=== PATIENT | male | born 1985 | race Caucasian/White ===

== ENCOUNTER 2024-07-13 11:47 | Emergency (ER) | payer OTHER, SELFPAY ==
--- NOTE | ~2024-07-13 | CT_ITS ---
EXAMINATION: CT abdomen pelvis w con DATE: 07/13/2024 20:13 INDICATION: Abdominal pain. Diarrhea. TECHNIQUE: Computed tomography (CT) of the abdomen and pelvis was performed with 100 mL Omnipaque 350 intravenous contrast. Automated exposure control and iterative reconstruction technique were employe d. The dose-length product was 473.43 mGy-cm. COMPARISON: CT abdomen and pelvis 06/08/2012 FINDINGS: The visualized portions of the lung bases are clear without pneumonia or pleural effusion. The heart size is normal. No pericardial effusion. The liver, gallbladder, spleen, pancreas, adrenal glands, and right kidney are normal. There are cysts in left kidney measuring up to 7 mm. There are n o dilated loops of bowel. There are scattered diverticula in the colon. There is wall thickening of t he sigmoid colon, consistent with colitis. The appendix is normal. There are no pathologically enlarg ed lymph nodes. There is no free intraperitoneal fluid. There is mild lumbar spondylosis. IMPRESSION: 1. Sigmoid colitis. Reviewed, dictated and finalized at location A. IMPRESSION: 1. Sigmoid colitis.
[2024-07-13 11:54] VITALS: BP 153/104; PULSE 85; RESP 18; TEMP 36.4; O2SAT 100
--- NOTE | 2024-07-13 15:08 | ED.ABDPAIN ---
HPI - Abdominal Pain General Chief Complaint: Abdominal Pain <Mel Varghese PA-C - Last Filed: 07/18/24 17:13> Stated Complaint: abd pain <Mel Varghese PA-C - Last Filed: 07/18/24 17:13> Time Seen by Provider: 07/13/24 15:08 <Mel Varghese PA-C - Last Filed: 07/18/24 17:13> Focused HPI: This is a 38-year-old male that presents to the emergency department for abdominal pain ongoing over the last 5 days. Reports concern of having a diverticulitis flare. He has been having loose stools. He also has had blood in the stool since yesterday. Reports history of diverticulitis. Denies fevers. GENERAL: Well-appearing, well-nourished, and in no acute distress. HEAD: Normocephalic, atraumatic. CHEST: Clear to auscultation. ?No respiratory distress. HEART: Regular rate and rhythm.? NEURO: ?Alert and oriented x3. Patient screened in triage and initial orders placed.? ?Additional care and disposition to be based upon?diagnostic testing and treatment. <Mel Varghese PA-C - Last Filed: 07/18/24 17:13> History of Present Illness HPI narrative: 38-year-old male presenting with diarrhea and abdominal pain. States that he had Yadira's last week since that time has had a lot of diarrhea. States that he has seen a little bit of blood in it for the last day. States his pain is been feeling like prior episodes of diverticulitis. States right now his pain is mild. No vomiting. He is tolerating p.o. intake. No fevers. No further complaints. <Gianna Watts MD - Last Filed: 07/14/24 19:02> Related Data Home Medications: Home Medications Medication Instructions Recorded Confirmed iekmedkm-exvnlger-zmeuq acid 400 tablet PO 02/03/24 02/03/24 mcg-vit K 20 mcg-lycop 300 mcg tablet (One-A-Day Men's Multivitamin) <Mel Varghese PA-C - Last Filed: 07/18/24 17:13> Allergies/Adverse Reactions: Allergies Allergy/AdvReac Type Severity Reaction Status Date / Time No Known Allergies Allergy Unknown Verified 07/13/24 11:47 <Mel Varghese PA-C - Last Filed: 07/18/24 17:13> Review of Systems Review of Systems: All systems reviewed & are unremarkable except as noted in HPI and below <Gianna Watts MD - Last Filed: 07/14/24 19:02> [facility] Past Medical History Medical History: Medical History History of diverticulitis <Mel Varghese PA-C - Last Filed: 07/18/24 17:13> Family History Family History: Family History Father Bladder cancer Mother Breast cancer <Mel Varghese PA-C - Last Filed: 07/18/24 17:13> Social History Social History: Social History Smoking status: Never smoker Alcohol intake: current Drinks per week: 0 Alcohol use details: one drink rarely Substance use: current Substance use type: marijuana Do You Feel Safe in your Home?: Yes Lack of Transportation: No Lack of Food: Never True Current Housing: I Have Housing Concerned About Future Housing: No Difficulty Paying Gas/Electric Bills: No Difficulty Paying for Meds: No Currently Unemployed: No Education: Trade/Vocational Certificate Difficulty w/ Childcare or Family Care: No Living arrangements: with family Occupation/Education: occupation 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 EYES: PERRLA and EOMI. ENT: Mucous membranes moist. NECK: Supple. CHEST: Clear to auscultation. No respiratory distress. HE
[2024-07-13 15:24] VITALS: BP 149/97; PULSE 65; RESP 18; TEMP 36.9; O2SAT 100
[2024-07-13 15:51] LABS: Basophils Percent Auto 0.5 % (0.2-1.2); Eosinophils Absolute Auto 0.2 K/mm3 (0-0.3); Eosinophils Percent Auto 1.8 % (0-4.4); Hematocrit 49.1 % (42.0-52.0); Immature Granulocyte Absolute 0.04 K/mm3 (0.00-0.031); Immature Granulocyte Percent A 0.5 % (0-0.5); Lymphocytes Absolute Auto 2.88 K/mm3 (0.9-3.2); Lymphocytes Percent Auto 35.4 % (18.3-44.2); Mean Corpuscular HGB Conc 34.6 g/dl (32-36); Mean Corpuscular Hemoglobin 29.4 pg (26-34); Mean Corpuscular Volume 84.9 fl (80-100); Mean Platelet Volume 9.5 fl (7.4-10.4); Monocytes Absolute Auto 0.8 K/mm3 (0.1-0.6); Monocytes Percent Auto 9.7 % (2.6-8.5); Neutrophils Absolute Auto 4.2 K/mm3 (1.3-6.7); Neutrophils Percent Auto 52.1 % (45.5-73.1); Platelet Count Result 303 k/mm3 (150-375); Red Blood Count 5.78 M/mm3 (4.6-6.20); Red Cell Distribution Width 12.2 % (11.5-14.5); White Blood Count 8.1 K/mm3 (4.5-10.0)
[2024-07-13 16:01] LABS: Alanine Aminotransferase 32 U/L (6-50); Albumin Level 4.8 g/dL (3.5-5.1); Alkaline Phosphatase 88 U/L (38-126); Anion Gap 9 mmol/L (4-12); Aspartate Amino Transferase 26 U/L (17-59); Bilirubin,Total 0.7 mg/dL (0.2-1.3); Blood Urea Nitrogen 12 mg/dL (9-20); Calcium 9.5 mg/dL (8.4-10.2); Carbon Dioxide 30 mmol/L (22-30); Chloride 101 mmol/L (98-107); Estimated CRCL calculation 85 ml/min; Estimated Glomerular Filt Rate > 60; Glucose 97 mg/dL (65-110); Lipase 82 U/L (23-300); Potassium 4.2 mmol/L (3.4-5.0); Sodium 140 mmol/L (137-145)
[2024-07-13 16:03] LABS: Add Urine Microscopic? YES; Appearance Urine Clear (Clear); Bacteria Urine None Seen /hpf; Bilirubin Urine Negative (Negative); Blood Urine 1+ (Negative); Color Urine Yellow (Yellow); Glucose Urine UA Negative (Negative); Ketones Urine Negative (Negative); Leukocyte Esterase Ur Negative LEU/UL (Negative); Mucus Urine Present /lpf; Need Manual Microscopic Reviewed; Nitrate Urine Negative (Negative); Non Pathogenic Casts 0-2; Protein Urine Negative (Negative); Specific Grav Ur 1.023 (1.001-1.035); Squamous Epithelial Cell Urine None Seen /hpf (Few); Urobilinogen Urine 0.2 mg/dL (<2.0); WBC Urine 0-5 /hpf (0-3)
[2024-07-13 16:11] LABS: Prothrombin Time 13.5 Seconds (11.1-14.7)
[2024-07-13 16:12] LABS: Partial Thromboplastin Time 33.1 Seconds (22.3-36.8)
[2024-07-13 21:06] VITALS: BP 141/96; PULSE 61; RESP 16; O2SAT 98
[2024-07-13] MEDS: AMOXICILLIN/CLAVULANATE K 875-125 MG TAB 1 TABLET PO (21:17)
[2024-07-13] MEDS: FAMOTIDINE 20 MG TABLET PO (21:17)
== END 2024-07-13 21:33 | disposition home or self-care (01) ==
PROVIDERS: Physician Assistant; Emergency Provider Emergency Medicine; PCP Family Medicine
DX: K52.9 Noninfective gastroenteritis and colitis, unspecified (principal)
CPT/HCPCS: 36415; 74177; 80053; 81001; 83690; 85025; 85610; 85730; 99284; A9270; Q9967

== ENCOUNTER 2024-07-23 10:36 | Emergency (ER) | payer OTHER, SELFPAY ==
[2024-07-23 10:40] VITALS: BP 138/84; PULSE 64; RESP 18; TEMP 36.8; O2SAT 99
--- NOTE | 2024-07-23 10:55 | ED.SKABFB ---
HPI - Skin/Abscess/Foreign Bdy General Chief complaint: Skin/Abscess/Foreign Body Stated complaint: Rash Time Seen by Provider: 07/23/24 11:05 Source: patient and RN notes reviewed Mode of arrival: ambulatory Limitations: no limitations History of Present Illness HPI narrative: 39-year-old male presents with concern for a rash on his left forearm. Reports it is intermittently itchy. He denies any other rash he denies any precipitating factors or any history of similar rash. He denies swollen lips, swollen tongue for breathing. He has not tried any intervention MD complaint: rash Related Data Home Medications Medication Instructions Recorded Confirmed lrebledj-zqrjumnc-vtege acid 400 tablet PO 02/03/24 02/03/24 mcg-vit K 20 mcg-lycop 300 mcg tablet (One-A-Day Men's Multivitamin) Allergies Allergy/AdvReac Type Severity Reaction Status Date / Time No Known Allergies Allergy Unknown Verified 07/23/24 10:42 Review of Systems Review of Systems: CONSTITUTIONAL: Denies malaise, chills, sweats, or fever. EYES: Denies redness, or discharge. ENT: Denies rhinorrhea, congestion, swollen lips, swollen tongue CARDIOVASCULAR: Denies chest pain, palpitations, or edema. RESPIRATORY: Denies cough or dyspnea. GASTROINTESTINAL: Denies abdominal pain, nausea, vomiting SKIN: Reports rash on his left forearm MUSCULOSKELETAL: Denies joint pain or myalgia. NEUROLOGIC: Denies headache. All systems reviewed & are unremarkable except as noted in HPI and below PMFSH Past Medical History Medical History History of diverticulitis Family History Family History Father Bladder cancer Mother Breast cancer Social History Social History Smoking status: Never smoker Alcohol intake: current Drinks per week: 0 Alcohol use details: one drink rarely Substance use: current Substance use type: marijuana Do You Feel Safe in your Home?: Yes Lack of Transportation: No Lack of Food: Never True Current Housing: I Have Housing Concerned About Future Housing: No Difficulty Paying Gas/Electric Bills: No Difficulty Paying for Meds: No Currently Unemployed: No Education: Trade/Vocational Certificate Difficulty w/ Childcare or Family Care: No Living arrangements: with family Occupation/Education: occupation 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 There is no relevant family history pertinent to the presenting complaint Exam Narrative: GENERAL: Well-appearing, well-nourished, and in no acute distress. HEAD: Normocephalic, atraumatic. EYES: PERRLA, conjunctivae clear, and EOMI. ENT: Mucous membranes moist. Oropharynx without edema, erythema or lesions. NECK: Supple. No lymphadenopathy CHEST: Clear to auscultation. No respiratory distress. HEART: Regular rate and rhythm. SKIN: Warm, dry. Patch of erythema in fine papules approximately a 10 cm x 4 cm dorsal left forearm NEURO: Alert and oriented x3. PSYCH: Normal mood and affect Course Course Emergency Course: Patient is aware of diagnosis, understands and agrees to treatment plan. Anticipatory guidance given. Patient agrees to follow-up as directed and is aware of reasons to seek care at the emergency department. Portions of this record may have been created with voice recognition software Level of Care: Express Care Visit Vital Signs Vital signs: Vital Signs Temperature 98.2 F 07/23/24 10:40 Pulse Rate 64 07/23/24 10:40 Respiratory Rate 18 07/23/24 10:40 Blood Pre
== END 2024-07-23 11:25 | disposition home or self-care (01) ==
PROVIDERS: Emergency Provider Nurse Practitioner; PCP Family Medicine
DX: L25.9 Unspecified contact dermatitis, unspecified cause (principal)
CPT/HCPCS: 99213; G0463

== ENCOUNTER 2024-07-23 12:15 | Emergency (ER) | payer OTHER, SELFPAY ==
[2024-07-23] VITALS (15 sets, daily range): BP systolic 130–152; BP diastolic 61–102; PULSE 63–73; RESP 18; TEMP 36.6–36.9; O2SAT 79–100
--- NOTE | ~2024-07-23 | CT_ITS ---
EXAMINATION: CT abdomen pelvis w con DATE: 07/23/2024 15:57 INDICATION: colitis TECHNIQUE: Computed tomography (CT) of the abdomen and pelvis was performed with 100 mL Omnipaque-350 intravenous contrast. Automated exposure control and iterative reconstruction technique were employe d. The dose-length product was 432.02 mGy-cm. COMPARISON: 07/13/2024, 06/08/2012. FINDINGS: Lower thorax: Unremarkable Liver: Normal. Biliary/Gallbladder: Gallbladder is normal. No bile duct dilation. Pancreas: No mass or duct dilation. Spleen: Normal. Adrenals:No mass. Kidneys: No suspicious mass, obstructing stone, or hydronephrosis. Subcentimeter left inferior pole h ypodensities, too small to characterize but likely representing cysts. GI tract: Mild distal esophageal and gastric wall edema. Persistent wall thickening of the sigmoid co sophy, unchanged. No small or large bowel dilation. Normal appendix. Mesentery/Peritoneum: No ascites, mass, or free air. Retroperitoneum: No mass. Pelvis: Pelvic organs are within normal limits. Soft Tissues: Soft tissues and body wall unremarkable. Bones: No acute osseous finding. IMPRESSION: Mild esophagitis/gastritis. Sigmoid colitis. Reviewed, dictated and finalized at location K.
[2024-07-23 14:54] LABS: Basophils Absolute Auto 0.1 K/mm3 (0.0-0.1); Basophils Percent Auto 0.5 % (0.2-1.2); Eosinophils Absolute Auto 0.2 K/mm3 (0-0.3); Eosinophils Percent Auto 1.8 % (0-4.4); Hematocrit 46.4 % (42.0-52.0); Immature Granulocyte Absolute 0.02 K/mm3 (0.00-0.031); Immature Granulocyte Percent A 0.2 % (0-0.5); Lymphocytes Absolute Auto 2.97 K/mm3 (0.9-3.2); Lymphocytes Percent Auto 31.2 % (18.3-44.2); Mean Corpuscular HGB Conc 34.5 g/dl (32-36); Mean Corpuscular Hemoglobin 29.6 pg (26-34); Mean Corpuscular Volume 85.9 fl (80-100); Mean Platelet Volume 9.9 fl (7.4-10.4); Monocytes Absolute Auto 0.5 K/mm3 (0.1-0.6); Monocytes Percent Auto 5.6 % (2.6-8.5); Neutrophils Absolute Auto 5.8 K/mm3 (1.3-6.7); Neutrophils Percent Auto 60.7 % (45.5-73.1); Platelet Count Result 282 k/mm3 (150-375); Red Cell Distribution Width 12.4 % (11.5-14.5); White Blood Count 9.5 K/mm3 (4.5-10.0)
[2024-07-23 15:04] LABS: Alanine Aminotransferase 28 U/L (6-50); Albumin Level 4.4 g/dL (3.5-5.1); Alkaline Phosphatase 69 U/L (38-126); Anion Gap 9 mmol/L (4-12); Aspartate Amino Transferase 25 U/L (17-59); Bilirubin,Total 0.5 mg/dL (0.2-1.3); Blood Urea Nitrogen 19 mg/dL (9-20); Calcium 9.2 mg/dL (8.4-10.2); Carbon Dioxide 27 mmol/L (22-30); Chloride 105 mmol/L (98-107); Estimated CRCL calculation 94 ml/min; Estimated Glomerular Filt Rate > 60; Glucose 92 mg/dL (65-110); Sodium 141 mmol/L (137-145)
--- NOTE | 2024-07-23 15:39 | ED.GENADULT ---
HPI - General Adult General Chief complaint: Abdominal Pain Stated complaint: ABD Pain, Blood In Stool Time Seen by Provider: 07/23/24 15:12 History of Present Illness HPI narrative: 39-year-old male presented to emergency department for evaluation for rectal bleeding. Patient states he was recently on a course of antibiotics for colitis but states that he did eat at a restaurant that was positive for a shigela outbreak. Patient states he had been on Augmentin and finished taking the Augmentin on Thursday but is still having bloody diarrhea including today. Related Data Home Medications Medication Instructions Recorded Confirmed lxkkrheb-liwvvvvh-gyupi acid 400 tablet PO 02/03/24 02/03/24 mcg-vit K 20 mcg-lycop 300 mcg tablet (One-A-Day Men's Multivitamin) Allergies Allergy/AdvReac Type Severity Reaction Status Date / Time No Known Allergies Allergy Unknown Verified 07/23/24 10:42 Review of Systems Review of Systems: All systems reviewed & are unremarkable except as noted in HPI and below PMFSH Past Medical History Medical History History of diverticulitis Family History Family History Father Bladder cancer Mother Breast cancer Social History Social History Smoking status: Never smoker Alcohol intake: current Drinks per week: 0 Alcohol use details: one drink rarely Substance use: current Substance use type: marijuana Do You Feel Safe in your Home?: Yes Lack of Transportation: No Lack of Food: Never True Current Housing: I Have Housing Concerned About Future Housing: No Difficulty Paying Gas/Electric Bills: No Difficulty Paying for Meds: No Currently Unemployed: No Education: Trade/Vocational Certificate Difficulty w/ Childcare or Family Care: No Living arrangements: with family Occupation/Education: occupation 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 HEAD: normocephalic, atraumatic. EYES: PERRLA/EOMI, conjunctivae clear. NOSE: Normal no drainage EARS:TMS clear with good light reflex. THROAT: Pharynx clear, no exudate. NECK: Supple. No adenopathy, no masses. RESPIRATORY: Airway patent, respirations nonlabored. Clear to auscultation bilaterally, no rales, rhonchi, wheezing. CARDIOVASCULAR: Regular rate and rhythm without murmurs rubs or gallops. ABDOMINAL: Soft, nontender, nondistended, normal bowel sounds MUSCULOSKELETAL: Moves all extremities. Strength/ROM intact, No edema, No calf tenderness. NEURO: Alert. Cranial nerves II through XII intact. Grossly intact SKIN: Warm, dry. Normal Color Course Vital Signs Vital signs: Vital Signs Temperature 97.9 F 07/23/24 12:32 Pulse Rate 63 07/23/24 12:32 Respiratory Rate 18 07/23/24 12:32 Blood Pressure 152/102 H 07/23/24 12:32 Pulse Oximetry 100 07/23/24 12:32 Oxygen Delivery Room Air 07/23/24 12:32 Temperature 98.4 F 07/23/24 18:20 Pulse Rate 73 07/23/24 18:20 Respiratory Rate 18 07/23/24 18:20 Blood Pressure 134/67 07/23/24 18:20 Pulse Oximetry 98 07/23/24 18:20 Oxygen Delivery Room Air 07/23/24 12:32 Medical Decision Making MDM Narrative Medical decision making narrative: 39-year-old male presents emergency department for evaluation for increased rectal bleeding. Patient had no further bleeding the emergency department. Patient is afebrile with a stable hemoglobin and no leukocytosis. No acute findings on the patient's CMP. CT scan did show evidence of colitis. stool cultures ordered but patient did not pro
[2024-07-23 15:43] LABS: INR 0.9
[2024-07-23 15:44] LABS: Partial Thromboplastin Time 30.2 Seconds (22.3-36.8)
[2024-07-23] MEDS: SODIUM CHLORIDE 0.9% IV 1,000 ML 999 ML IV CONT (16:03)
[2024-07-23] MEDS: PANTOPRAZOLE SODIUM IV 40 MG VIAL IV PUSH (16:56)
[2024-07-23] MEDS: metroNIDAZOLE 500 MG/ISO 100ML 500 MG/100 ML BAG 100 MG IVPB (16:57)
[2024-07-23] MEDS: FAMOTIDINE 20 MG/2 ML VIAL IV PUSH (16:57)
[2024-07-23] MEDS: CIPROFLOXACIN 400 MG/D5W 200ML 200 ML 200 MG IVPB (18:13)
== END 2024-07-23 18:30 | disposition home or self-care (01) ==
PROVIDERS: Emergency Medicine; Emergency Provider Emergency Medicine; PCP Family Medicine
DX: K29.70 Gastritis, unspecified, without bleeding (principal); K52.9 Noninfective gastroenteritis and colitis, unspecified
CPT/HCPCS: 36415; 74177; 80053; 85025; 85610; 85730; 87045; 87427; 87449; 96361; 96365; 96367; 96375; 99284; J0744; J1836; J2470; J7030; Q9967

== ENCOUNTER 2024-08-29 00:07 | Day surgery (SDC) | payer OTHER, SELFPAY ==
[2024-08-18 10:48] VITALS: BMI 29.7
[2024-08-29 11:18] VITALS: BP 139/96; PULSE 74; RESP 18; TEMP 36.9; O2SAT 100
[2024-08-29] MEDS: LACTATED RINGERS 1,000 ML 150 ML IV CONT (11:20)
--- NOTE | 2024-08-29 12:31 | WPDANESEPPF ---
Anes - Initial Pre Proc Eval Procedure: Operation Date: 08/29/24 12:30 Proposed Procedures p Colonoscopy - Paul Pires MD Date/Time: 08/29/24 12:31 Surgeon: Paul Pires MD Pre Op Diagnosis: Melena Patient Data Age: 39 Gender: M Height: 1.65 m Weight: 83.1 kg Last Vital Signs Temp 36.9 C 08/29/24 11:18 Pulse 74 08/29/24 11:18 Resp 18 08/29/24 11:18 BP 139/96 H 08/29/24 11:18 Pulse Ox 100 08/29/24 11:18 O2 Del Method Room Air 08/29/24 11:18 Allergies Allergy/AdvReac Type Severity Reaction Status Date / Time No Known Allergies Allergy Unknown Verified 08/29/24 11:15 Home Medications Medication Instructions Recorded Confirmed Type ryolvqbv-vkdqkyul-jrkdj acid 400 1 tablet PO DAILY 02/03/24 08/29/24 History mcg-vit K 20 mcg-lycop 300 mcg tablet (One-A-Day Men's Multivitamin) Patient hx anesthesia problems: none Family hx anesthesia problems: none Results Review: All pre-operative results and documents have been reviewed as part of the pre-operative evaluation. [facility] Past Medical History Medical History History of diverticulitis Family History Family History Father Bladder cancer Mother Breast cancer Social History Social History Smoking status: Current every day smoker Tobacco type: e-cigarettes/vaping Alcohol intake: current Drinks per week: 0 Alcohol use details: one drink rarely Substance use: current Substance use type: marijuana Do You Feel Safe in your Home?: Yes Lack of Transportation: No Lack of Food: Never True Current Housing: I Have Housing Concerned About Future Housing: No Difficulty Paying Gas/Electric Bills: No Difficulty Paying for Meds: No Currently Unemployed: No Education: Trade/Vocational Certificate Difficulty w/ Childcare or Family Care: No Living arrangements: with family Occupation/Education: occupation 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 [employer] Gender identity (if verbalized by the patient): Male Sexual Orientation (if Verbalized by the Patient): Straight or Heterosexual Spiritual care concerns: No Anes - Eval Final PreProcedure Day of Procedure 08/29/24 12:31 Patient weight: obese Heart: regular rate and rhythm Lungs: clear to auscultation Airway: Mallampati scale class 1 Neurological: alert and oriented Last oral intake: >/= 8 hours ASA classification: II Emergent: no Anesthetic plan: proceed Anesthesia type and monitoring: general GIVS and standard monitoring Results Review: All pre-operative results and documents have been reviewed as part of the pre-operative evaluation. Informed Consent: The patient's anesthetic plan and its attendant risks and benefits were discussed with the patient/family/POA. Questions were solicited and answers provided to the satisfaction of the patient/family/POA.
--- NOTE | 2024-08-29 12:55 | P.HP_ITS ---
H&P: HPI History of Present Illness Date/Time: 08/29/24 12:55 Chief Complaint: Rectal bleeding Narrative: the patient had an episode of acute diarrhea with rectal bleeding which lasted 3 weeks, approximately 2 weeks ago. In addition, patient had fever, myalgias and general malaise. He knew about an outbreak of Shigella at a restaurant where he ate shortly before he had this episode. He is here for colonoscopy. Review of Systems Review of Systems: All systems reviewed & are unremarkable except as noted in HPI and below PMFSH Past Medical History Medical History History of diverticulitis Family History Family History Father Bladder cancer Mother Breast cancer Social History Social History Smoking status: Current every day smoker Tobacco type: e-cigarettes/vaping Alcohol intake: current Drinks per week: 0 Alcohol use details: one drink rarely Substance use: current Substance use type: marijuana Do You Feel Safe in your Home?: Yes Lack of Transportation: No Lack of Food: Never True Current Housing: I Have Housing Concerned About Future Housing: No Difficulty Paying Gas/Electric Bills: No Difficulty Paying for Meds: No Currently Unemployed: No Education: Trade/Vocational Certificate Difficulty w/ Childcare or Family Care: No Living arrangements: with family Occupation/Education: occupation 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 [employer] Gender identity (if verbalized by the patient): Male Sexual Orientation (if Verbalized by the Patient): Straight or Heterosexual Spiritual care concerns: No Meds Home Medications and Allergies Home Medications Medication Instructions Recorded Confirmed Type jrqzkwdv-lcpylqgd-nfuxp acid 400 1 tablet PO DAILY 02/03/24 08/29/24 History mcg-vit K 20 mcg-lycop 300 mcg tablet (One-A-Day Men's Multivitamin) Allergies Allergy/AdvReac Type Severity Reaction Status Date / Time No Known Allergies Allergy Unknown Verified 08/29/24 11:15 Vital Signs Vital Signs - 24 hr 08/29/24 11:18 Temperature 98.5 F Pulse Rate 74 Respiratory Rate 18 Blood Pressure 139/96 H Pulse Oximetry 100 Oxygen Delivery Room Air Exam Narrative: APPEARANCE: Well appearing, no pain, no distress, well-nourished. HEAD: normocephalic, atraumatic. EYES: PERRLA/EOMI, conjunctivae clear. NOSE: Normal no drainage EARS:TMS clear with good light reflex. THROAT: Pharynx clear, no exudate. NECK: Supple. No adenopathy, no masses. RESPIRATORY: Airway patent, respirations nonlabored. Clear to auscultation bilaterally, no rales, rhonchi, wheezing. CARDIOVASCULAR: Regular rate and rhythm without murmurs rubs or gallops. ABDOMINAL: Soft, nontender, nondistended, normal bowel sounds MUSCULOSKELETAL: Moves all extremities. Strength/ROM intact, No edema, No calf tenderness. NEURO: Alert. Cranial nerves II through XII intact. Grossly intact SKIN: Warm, dry. Normal Color Assessment and Plan Assessment and plan (1) History of diverticulitis: Code(s): Z87.19 - Personal history of other diseases of the digestive system Status: Acute (2) Rectal bleed: Code(s): K62.5 - Hemorrhage of anus and rectum Status: Acute Assessment and Plan: The patient is deemed a good candidate for the procedure. Consent signed. Will proceed.
[2024-08-29] MEDS: SIMETHICONE ORAL SUSPENSION 20 MG/0.3 ML 30 ML BOTTLE 0.6 ML IRRIGATION (13:05)
[2024-08-29 13:23] VITALS: BP 116/81; PULSE 83; RESP 24; O2SAT 98
[2024-08-29 13:33] VITALS: BP 119/81; PULSE 68; RESP 20; O2SAT 97
[2024-08-29 13:43] VITALS: BP 121/87; PULSE 70; RESP 20; O2SAT 98
== END 2024-08-29 14:00 | disposition home or self-care (01) ==
PROVIDERS: PCP Family Medicine; Visit Provider Internal Medicine Gastroenterology
PROC: 0DJD8ZZ Inspection of Lower Intestinal Tract, Via Natural or Artificial Opening Endoscopic (ICD-10-PCS; CPT 45378; principal; 2024-08-29 12:30)
DX: K62.5 Hemorrhage of anus and rectum (principal); K64.0 First degree hemorrhoids; F17.290 Nicotine dependence, other tobacco product, uncomplicated; F12.90 Cannabis use, unspecified, uncomplicated; E66.9 Obesity, unspecified; Z68.30 Body mass index [BMI] 30.0-30.9, adult; Z87.19 Personal history of other diseases of the digestive system
CPT/HCPCS: 45378; J2704; J7120